=== PATIENT | female | born 1980 | race African-American/Black ===

== ENCOUNTER 2025-02-26 10:48 | Emergency (ER) | payer SELFPAY ==
[~2025-02-26] VITALS: Ht 162.6 cm; Wt 82.0 kg
[2025-02-26] MEDS: HALOPERIDOL LACTATE 5MG/ML VIAL IM ONE (11:27)
[2025-02-26] MEDS: MIDAZOLAM HCL 2 MG/2 ML VIAL IM ONE (11:28)
[2025-02-26] MEDS: DIPHENHYDRAMINE 50MG/ML VIAL IM ONE (13:15)
[2025-02-26 14:49] LABS: BASOPHILS % 0.9 % (0.0-2.0); EOSINOPHILS % 0.2 % (0.0-5.0); HEMATOCRIT. 36.2 % (36.0-48.0); HEMOGLOBIN. 12.1 g/dL (12.0-16.0); LYMPHOCYTES % 22.8 % (20.0-50.0); MEAN CORPUSCULAR HEMOGLOBIN 30.9 pg (28.0-32.0); MEAN CORPUSCULAR HGB CONC 33.5 g/dL (31.0-37.0); MEAN CORPUSCULAR VOLUME 92.5 fL (81.0-99.0); MEAN PLATELET VOLUME 9.1 fl (7.4-10.4); NEUTROPHILS % 69.1 % (40.0-76.0); PLATELET 225 x1000/uL (130-400); RED BLOOD CELL COUNT 3.91 mill/uL (4.2-5.4); RED CELL DISTRIBUTION WIDTH 14.6 % (11.6-14.6); WHITE BLOOD COUNT 8.3 x1000/uL (4.5-11.0)
[2025-02-26 14:54] LABS: CHLORIDE 109 mEq/L (98-107); POTASSIUM 3.1 mEq/L (3.5-5.1); SODIUM 146 mEq/L (136-145)
[2025-02-26 14:55] LABS: CALCIUM 9.5 mg/dL (8.7-10.4); CARBON DIOXIDE 25 mEq/L (21-32)
[2025-02-26 15:00] LABS: CREATININE 1.1 mg/dL (0.6-1.0); GLUCOSE 72 mg/dL (70-105); UREA NITROGEN BLOOD 16 mg/dL (9-23)
[2025-02-26 15:01] LABS: ETHANOL BLOOD < 10 mg/dL (<10)
[2025-02-26 15:02] LABS: ACETAMINOPHEN < 2 ug/mL (10-30)
[2025-02-26 15:05] LABS: HCG SCREEN NEGATIVE
[2025-02-26 16:15] VITALS: O2SAT 100
[2025-02-26] MEDS: MIDAZOLAM HCL 2 MG/2 ML VIAL IV ONE (16:15)
[2025-02-26] MEDS: POTASSIUM CHLORIDE 20MEQ TABLET SR PO ONE (18:45)
[2025-02-26] MEDS: ZIPRASIDONE MESYLATE 20MG/VIAL IM ONE (20:21)
[2025-02-27 09:21] VITALS: BP 147/84; PULSE 99; RESP 16; TEMP 36.8; O2SAT 100
== END 2025-02-27 10:03 | disposition home or self-care (01) ==
LOC: ER 10:48
DX: R46.2 Strange and inexplicable behavior (principal); R07.9 Chest pain, unspecified; R51.9 Headache, unspecified; Z79.899 Other long term (current) drug therapy
CPT/HCPCS: 80048; 80307; 80329; 80320; 84703; 85025; 36415; 70450; 93005; 96372; 99285; J1200; J1630; J2250; J3486; Z7610; G0480